=== PATIENT | female | born 1990 | race Caucasian/White ===

== ENCOUNTER 2020-01-23 00:17 | Emergency (ER) | payer OTHER ==
[2020-01-23] MEDS ORDERED: KETOROLAC TROMETHAMINE INJ/PF 30 MG/1 ML SDV IV ONE (00:38)
--- NOTE | 2020-01-23 00:39 | ER Document Report ---
ED Medical Screen (RME) - General Chief Complaint: Flank Pain Stated Complaint: LEFT FLANK PAIN, BACK PAIN, VAGINAL PAIN Time Seen by Provider: 01/23/20 00:36 Notes: HPI: 29-year-old female presenting with left flank and pelvic pain. Patient s nory she had an IUD removed 2 weeks ago, was told she had a UTI at that time, was placed on Cipro with worsening symptoms over the last 3 to 4 days. Patient reports significant pain through the left pelvis and left flank region. Has had nausea no vomiting PHYSICAL EXAMINATION: Patient appears moderately uncomfortable. Has tenderness in the left pelvis, left flank with mild left CVA tenderness I have greeted and performed a rapid initial assessment of this patient. A comprehensive ED assessment and evaluation of the patient, analysis of test results and completion of medical decision making process will be conducted by an additional ED providers. Physical Exam - Vital signs Vitals: Temp Pulse Resp BP Pulse Ox 97.5 F 63 16 127/85 H 100 01/23/20 00:22 01/23/20 00:22 01/23/20 00:22 01/23/20 00:22 01/23/20 00:22 Course - Vital Signs Vital signs: Temp Pulse Resp BP Pulse Ox 97.5 F 63 16 127/85 H 100 01/23/20 00:22 01/23/20 00:22 01/23/20 00:22 01/23/20 00:22 01/23/20 00:22
[2020-01-23 00:58] LABS: APPEARANCE,URINE CLOUDY; BILIRUBIN,URINE NEGATIVE (NEGATIVE); COLOR,URINE YELLOW; GLUCOSE, URINE NEGATIVE (NEGATIVE); KETONES,URINE NEGATIVE (NEGATIVE); LEUKOCYTE ESTERASE,URINE MODERATE (NEGATIVE); NITRITE,URINE NEGATIVE (NEGATIVE); PROTEIN,URINE 30 mg/dL (NEGATIVE); URINE SPECIFIC GRAVITY 1.028; UROBILINOGEN,URINE NEGATIVE mg/dL (<2.0)
[2020-01-23] MEDS ORDERED: CEFTRIAXONE 1 GM/D5W RTU 1 GM/50 ML RTUPB IV ONE ×2 (01:00→04:00)
[2020-01-23] MEDS ORDERED: ONDANSETRON HCL INJ/PF 4 MG/2 ML SDV ONE (01:14)
[2020-01-23] MEDS ORDERED: ONDANSETRON HCL INJ/PF 4 MG/2 ML SDV IV ONE (01:16)
[2020-01-23 01:31] LABS: ABSOLUTE BASOPHILS # (AUTO) 0.1 10^3/uL (0.0-0.2); ABSOLUTE EOSINOPHILS # (AUTO) 0.1 10^3/uL (0.0-0.6); ABSOLUTE LYMPHOCYTES (AUTO) 2.3 10^3/uL (0.5-4.7); ABSOLUTE MONOCYTES (AUTO) 0.8 10^3/uL (0.1-1.4); ABSOLUTE NEUT (AUTO) 4.5 10^3/uL (1.7-8.2); BASOPHILS % (AUTO) 1.3 % (0-2); EOSINOPHILS % (AUTO) 1.2 % (0-6); HEMATOCRIT 41.4 % (36.0-47.0); HEMOGLOBIN 14.2 g/dL (12.0-15.5); LYMPHOCYTES % (AUTO) 29.6 % (13-45); MEAN CORPUSCULAR HEMOGLOBIN 29.7 pg (27.0-33.4); MEAN CORPUSCULAR HGB CONC 34.3 g/dL (32.0-36.0); MEAN CORPUSCULAR VOLUME 87 fl (80-97); MONOCYTES % (AUTO) 10.3 % (3-13); PLATELET COUNT 275 10^3/uL (150-450); RED BLOOD COUNT 4.78 10^6/uL (3.72-5.28); RED CELL DISTRIBUTION WIDTH 13.8 % (11.5-14.0); SEGMENTED NEUTROPHILS % (AUTO) 57.6 % (42-78); TOTAL CELLS COUNTED % (AUTO) 100 %; WHITE BLOOD COUNT 7.9 10^3/uL (4.0-10.5)
[2020-01-23 01:46] LABS: ALBUMIN 4.7 g/dL (3.5-5.0); ALKALINE PHOSPHATASE 83 U/L (38-126); ANION GAP 11 (5-19); ASPARTATE AMINO TRANSFERASE 25 U/L (14-36); BILIRUBIN,TOTAL 0.4 mg/dL (0.2-1.3); BLOOD UREA NITROGEN 15 mg/dL (7-20); CALCIUM 9.4 mg/dL (8.4-10.2); CARBON DIOXIDE 27 mmol/L (22-30); CHLORIDE 100 mmol/L (98-107); GLUCOSE 98 mg/dL (75-110); POTASSIUM 3.6 mmol/L (3.6-5.0)
[2020-01-23 01:47] LABS: TOTAL PROTEIN 7.6 g/dL (6.3-8.2)
--- NOTE | 2020-01-23 02:09 | RADIOLOGY REPORT (SQ) ---
CT abdomen and pelvis with contrast on 01/23/2020 at 1:32 AM CLINICAL INDICATION: Pyelonephritis TECHNIQUE: Multiple axial images are obtained throughout the abdomen and pelvis following the administration of IV contrast, 82 mL of Omnipaque 350contrast was administered intravenously without complication. This exam was performed according to our departmental dose-optimization program, which includes automated exposure control, adjustment of the mA and/or kV according to patient size and/or use of iterative reconstruction technique. Total DLP is 750.3 mGy*cm. COMPARISON: None FINDINGS: Abdomen: The lung bases are clear. There is mild left hydronephrosis and hydroureter to the level of a 2-3 mm left distal ureteral stone just above the left UVJ. There is a delayed left nephrogram and delayed excretion by the left kidney related to this obstructing stone. No CT evidence of pyelonephritis is noted. The solid abdominal organs are otherwise unremarkable. There is no abdominal adenopathy. There is no free fluid or free air within the abdomen. The abdominal portion of the GI tract is unremarkable. Pelvis: Trace free fluid in the pelvis is likely physiologic. Pelvic organs appear unremarkable by CT. There is no pelvic adenopathy. The pelvic portion of the GI tract including the appendix is unremarkable. No bony abnormality is noted. IMPRESSION: 1. Mild left hydronephrosis and hydroureter to the level of a 2-3 mm left distal ureteral stone just above the left UVJ. 2. Otherwise essentially unremarkable.
[2020-01-23] MEDS ORDERED: CEFTRIAXONE INJ 1000 MG VIAL ONE (03:39)
--- NOTE | 2020-01-23 04:02 | ER Document Report ---
ED GI/ - General Chief Complaint: Flank Pain Stated Complaint: LEFT FLANK PAIN, BACK PAIN, VAGINAL PAIN Time Seen by Provider: 01/23/20 00:36 Notes: Patient is a 29-year-old female that comes emergency department for chief complaint of left flank pain radiating around to the left mid to lower abdomen. She states that she had an IUD removed approximately 2 weeks ago, at that visit she was also told she had a UTI, she states she was placed on Cipro, she has remained on Cipro since that time. She reports intermittent irritation and discomfort with urination and she has developed intermittent flank pain. She states that symptoms have worsened and tonight she started having severe sharp flank pain on the left and she vomited. She denies fever/chills. She denies history of kidney stones. She denies vaginal bleeding or discharge. - Related Data Allergies/Adverse Reactions: No Known Allergies Allergy (Verified 01/23/20 01:23) Home Medications: cipro. ibuprofen. benadryl Past Medical History - General Information source: Patient - Social History Smoking Status: Never Smoker Frequency of alcohol use: None Drug Abuse: None Lives with: Family Family History: Reviewed & Not Pertinent Patient has homicidal ideation: No Renal/ Medical History: Reports: Hx Kidney Stones Surgical Hx: Negative - Immunizations Immunizations up to date: Yes Hx Diphtheria, Pertussis, Tetanus Vaccination: Yes Review of Systems - Review of Systems Constitutional: No symptoms reported EENT: No symptoms reported Cardiovascular: No symptoms reported Respiratory: No symptoms reported Gastrointestinal: See HPI Genitourinary: See HPI Female Genitourinary: No symptoms reported Musculoskeletal: No symptoms reported Skin: No symptoms reported Hematologic/Lymphatic: No symptoms reported Neurological/Psychological: No symptoms reported Physical Exam - Vital signs Vitals: Temp Pulse Resp BP Pulse Ox 97.5 F 63 16 127/85 H 100 01/23/20 00:22 01/23/20 00:22 01/23/20 00:22 01/23/20 00:01/23/20 00:22 - Notes Notes: GENERAL: Alert, interacts well. No acute distress. HEAD: Normocephalic, atraumatic. EYES: Pupils equal, round, and reactive to light. Extraocular movements intact. ENT: Oral mucosa moist, tongue midline. Oropharynx unremarkable. Airway patent. NECK: Full range of motion. Supple. Trachea midline. No lymphadenopathy. LUNGS: Clear to auscultation bilaterally, no wheezes, rales, or rhonchi. No respiratory distress. Non-tender chest wall. HEART: Regular rate and rhythm. No murmur ABDOMEN: Soft, non-tender. Non-distended. No guarding or rigidity. EXTREMITIES: Moves all 4 extremities spontaneously. No edema, normal radial and dorsalis pedis pulses bilaterally. No cyanosis. BACK: No CVA tenderness noted. No cervical, thoracic, lumbar midline tenderness. No saddle anesthesia, normal distal neurovascular exam. Moves all extremities in full range of motion. NEUROLOGICAL: Alert and oriented x3. Normal speech. Cranial nerves II through XII grossly intact. Strength 5/5 in all extremities. PSYCH: Normal affect, normal mood. SKIN: Warm, dry, normal turgor. No rashes or lesions noted. Course - Re-evaluation Re-evalutation: Patient was medicated from triage orders and on my evaluation she has no complaints. She is smiling and well-appearing. She has a soft nontender abdomen and no noted CVA tenderness. Vital signs unremarkable. Patient is afebrile. CBC unremarkable, chemistry unremarkable. Urine shows a few white blood cells, the same amount of squamous epithelials, and some red blood cells. CT was also performed from triage and this does show a left-sided 2-3 millimeters distal UVJ stone. No other concerning findings. Urine culture was placed. Patient actually received Rocephin from triage orders as well. Patient expresses concern about how long she has been on Cipro, we discussed options. Because there are some white blood cells with her passing stone and she does have some dysuria decision was made to place culture, placed on Keflex, stop Cipro. I discussed urology follow-up, patient states that she already has primary care follow-up planned and she will have them referred her to urology if needed. Discussed return precautions in detail. Patient states understanding and agreement. Stable, asymptomatic, well-appearing at time of discharge. - Vital Signs Vital signs: Temp Pulse Resp BP Pulse Ox 97.5 F 64 16 124/84 98 01/23/20 04:35 01/23/20 04:35 01/23/20 04:35 01/23/20 04:35 01/23/20 04:35 - Laboratory Result Diagrams: 01/23/20 01:11 01/23/20 01:11 Laboratory results interpreted by me: 01/23/20 00:35 Urine Protein 30 H Urine Blood MODERATE H Ur Leukocyte Esterase MODERATE H Discharge - Discharge Clinical Impression: Left flank pain, Ureterolithiasis Vomiting Qualifiers: Vomiting type: unspecified Vomiting Intractability: non-intractable Nausea presence: with nausea Qualified Code(s): R11.2 - Nausea with vomiting, unspecified Condition: Stable Disposition: HOME, SELF-CARE Additional Instructions: You are passing in approximately 3 mm kidney stone on the left side. This appears to be the cause of your symptoms. You should be able to pass the stone at home. Take pain medication if needed as prescribed, take nausea medication as prescribed, stop the Cipro. Take Keflex as prescribed over the next several d ays as we discussed. You can add 600 mg of ibuprofen every 6 hours and 25 to 50 mg of Benadryl every 6 hours with your medications for better symptom management. Drink plenty of fluids. Call your primary care provider for close follow-up and additional management. Return if you worsen including severe worsening pain, uncontrolled vomiting, developing fever/chills, or any other concerning or worsening symptoms. Prescriptions: Cephalexin Monohydrate [Keflex 500 mg Capsule] 500 mg PO QID 5 Days #10 capsule Morphine Sulfate [Morphine Ir 15 Mg Tablet] 15 mg PO TID PRN #15 tablet PRN Reason: Ondansetron [Zofran Odt 4 mg Tablet] 1 - 2 tab PO Q4H PRN #15 tab.rapdis PRN Reason: For Nausea/Vomiting Forms: Return to Work
[2020-01-23] MEDS ORDERED: HYDROCODONE/ACETAMINOPHEN 5-325 MG (6 TAB/ER DISP) PO PRN (04:13)
[2020-01-23] MEDS ORDERED: ONDANSETRON ODT 4 MG TAB (6 TAB/ER DISP) PO PRN (04:13)
[2020-01-23 04:36] VITALS: BP 124/84
== END 2020-01-23 04:36 | disposition home or self-care (01) ==
LOC: ER 00:17
DX: N20.1 Calculus of ureter (principal); R10.9 Unspecified abdominal pain; R11.2 Nausea with vomiting, unspecified; Z87.442 Personal history of urinary calculi
CPT/HCPCS: 99284; 96375; 96365; 36415; 87086; 85025; 81025; 80053; 81001; 74177; J1885; J2405; J0696